=== PATIENT | female | born 1955 | race African-American/Black ===

== ENCOUNTER 2024-07-25 15:44 | Emergency (ER) | payer MEDICARE, MEDICAID ==
[~2024-07-25] VITALS: Ht 162.6 cm; Wt 65.0 kg
[2024-07-25 16:15] VITALS: O2SAT 99
[2024-07-25] MEDS: KETOROLAC 30MG/ML VIAL IV STA (17:19)
[2024-07-25] MEDS: SODIUM CHLORIDE 0.9% 1,000 ML IV ONE (17:19)
[2024-07-25 17:24] LABS: BASOPHILS % 0.9 % (0.0-2.0); DIFFERENTIAL COMMENT 0; EOSINOPHILS % 0.6 % (0.0-5.0); HEMOGLOBIN. 12.9 g/dL (12.0-16.0); LYMPHOCYTES % 15.6 % (20.0-50.0); MEAN CORPUSCULAR HEMOGLOBIN 25.1 pg (28.0-32.0); MEAN CORPUSCULAR HGB CONC 33.8 g/dL (31.0-37.0); MEAN CORPUSCULAR VOLUME 74.3 fL (81.0-99.0); MEAN PLATELET VOLUME 8.4 fl (7.4-10.4); NEUTROPHILS % 75.9 % (40.0-76.0); PLATELET 293 x1000/uL (130-400); RED BLOOD CELL COUNT 5.11 mill/uL (4.2-5.4); RED CELL DISTRIBUTION WIDTH 13.8 % (11.6-14.6); WHITE BLOOD COUNT 15.9 x1000/uL (4.5-11.0)
[2024-07-25 17:27] LABS: CHLORIDE 102 mEq/L (98-107); POTASSIUM 3.9 mEq/L (3.5-5.1); SODIUM 137 mEq/L (136-145)
[2024-07-25 17:28] LABS: CARBON DIOXIDE 28 mEq/L (21-32)
[2024-07-25 17:33] LABS: CREATININE 0.6 mg/dL (0.6-1.0); GLUCOSE 251 mg/dL (70-105); UREA NITROGEN BLOOD 10 mg/dL (9-23)
[2024-07-25 17:38] LABS: THYROID STIMULATING HORMONE 0.93 uIU/mL (0.55-4.78)
[2024-07-25] MEDS: METRONIDAZOLE 500 MG PREMIX 100 ML IV ONE (20:22)
[2024-07-25] MEDS: LEVOFLOXACIN 750MG PREMIX 150 ML IV ONE (21:59)
[2024-07-25 23:13] VITALS: BP 144/65; PULSE 102; RESP 20; TEMP 37.1; O2SAT 100
== END 2024-07-25 23:42 | disposition short-term general hospital (02) ==
LOC: ER 15:44
DX: R51.9 Headache, unspecified (principal); K11.5 Sialolithiasis; K12.2 Cellulitis and abscess of mouth; E11.9 Type 2 diabetes mellitus without complications; I10 Essential (primary) hypertension; Z88.0 Allergy status to penicillin
CPT/HCPCS: 99285; 70487; 96365; 96367; 96361; 96375; 80048; 84443; 85025; 87040; 36415; 70491; J1885; J3490; J1956; J7030; 96374; 99284